=== PATIENT | female | born 1940 | race Caucasian/White ===

== ENCOUNTER 2017-04-18 17:27 | Inpatient (IN) | payer MEDICARE, OTHER ==
[~2017-04-18] VITALS: Ht 154.9 cm; Wt 68.0 kg
[~2017-04-18 17:27] MED LIST: ALBU8.5H3 INH; ASPI81TA16 PO; EZET10TA3 PO; FERGON PO; LOSA100T7 PO; MECL-77 PO; METF500T4 PO; METO100T13 PO; OMEG1CAP2 PO; SUMA100T4 PO; [UNRECOGNIZED DRUG - CODE] IM
[2017-04-18 18:07] LABS: BASOPHILS % 0.9 % (0.0-2.0); EOSINOPHILS # 0.1 10^3/ul (0.0-0.5); EOSINOPHILS % 1.7 % (0.0-7.0); HEMATOCRIT 34.7 % (37.0-47.0); HEMOGLOBIN 10.9 g/dl (12.0-16.0); LYMPHOCYTES # 1.2 10^3/ul (0.8-2.9); LYMPHOCYTES % 35.1 % (15.0-51.0); MEAN CORPUSCULAR HEMOGLOBIN 28.8 pg (29.0-33.0); MEAN CORPUSCULAR HGB CONC 31.4 g/dl (32.0-37.0); MEAN CORPUSCULAR VOLUME 91.6 fl (82.0-101.0); MEAN PLATELET VOLUME 9.5 fl (7.4-10.4); MONOCYTE # 0.4 10^3/ul (0.3-0.9); MONOCYTES % 10.6 % (0.0-11.0); NEUTROPHIL # 1.8 10^3/ul (1.6-7.5); NEUTROPHILS % 51.4 % (39.0-77.0); PLATELET COUNT 189 10^3/UL (140-415); RED BLOOD COUNT 3.79 10^6/ul (4.20-5.40); RED CELL DISTRIBUTION WIDTH 14.2 % (11.5-14.5); WHITE BLOOD COUNT 3.5 10^3/ul (4.8-10.8)
--- NOTE | 2017-04-18 18:20 | ERA ---
ER Documentation Chief Complaint Date/Time DATE: 04/18/17 TIME: 18:17 Chief Complaint chest pain radiates to the back " my heast skip beats" HPI This is a very pleasant 76-year-old female, Albanian speaking, with a history of hypertension taking metoprolol that presents to the emergency department complaining of chest palpitations and irregular rhythms of her heart for the past 24 hours. The patient indicates she had associated symptoms of dizziness lightheadedness but denied a headache nausea vomiting or diarrhea. She stated she had no chest pressure that radiated to the neck arm or jaw but did indicate when she would experience these palpitations with a sensation of irregular rhythm she would also experience pain that was radiating to the upper back. She denied any lower abdominal pain or lower back pain. She no frequency urgency or dysuria. She states she has never had any similar symptoms in the past. She has no shortness of breath at rest or exertion denies any recent travel or prolonged immobilization. ROS All systems reviewed and are negative except as per history of present illness. Medications Home Meds Active Scripts Albuterol Sulfate* (Proair HFA*) 8.5 Gm Hfa.aer.ad, 2 PUFF INH Q4H Y for WHEEZING AND SOB, #1 INHALER Prov:SHELLIE VARELA MD 06/07/16 Reported Medications Cyanocobalamin* (Vitamin B12*) 1,000 Mcg/Ml Soln, 1000 MCG IM DAILY, VIAL 11/27/15 Metformin Hcl* (Metformin Hcl*) 500 Mg Tablet, 500 MG PO WITH BREAKFAST, #30 TAB 11/27/15 Sumatriptan Succinate* (Sumatriptan Succinate*) 100 Mg Tablet, 100 MG PO BID Y for HEADACHE, TAB May repeat after 2 hours if needed; MAX 200 mg/24 hours 11/27/15 Losartan Potassium* (Losartan Potassium*) 100 Mg Tablet, 100 MG PO DAILY, TAB 11/27/15 Aspirin (LOW DOSE ASPIRIN EC) 81 Mg Tablet.dr, 81 MG PO DAILY, #30 TAB 11/27/15 Ezetimibe* (Zetia*) 10 Mg Tablet, 10 MG PO HS, TAB 11/27/15 Ferrous Gluconate* (Fergon*) 325 Mg Tab, 325 MG PO DAILY, TAB 11/27/15 [place]-3 Acid Ethyl Esters (Lovaza) 1 Gm Capsule, 2 GM PO BID, CAP 11/27/15 Meclizine Hcl* (Meclizine Hcl*) 25 Mg Tablet, 25 MG PO Q8H Y for NAUSEA AND/OR VOMITING, TAB 11/27/15 Metoprolol Succinate* (Toprol XL*) 100 Mg Tab.sr.24h, 100 MG PO DAILY, #30 TAB 11/27/15 Allergies Allergies: Coded Allergies: No Known Allergy (Unverified , 06/07/16) PMhx/Soc History of Surgery: Yes (COLON RESECTION) Anesthesia Reaction: No ( ) Hx Neurological Disorder: No Hx Respiratory Disorders: No Hx Cardiac Disorders: Yes (HTN) Hx Psychiatric Problems: No Hx Miscellaneous Medical Probl: No Hx Alcohol Use: No Hx Substance Use: No Hx Tobacco Use: No Smoking Status: Never smoker Physical Exam Vitals Vital Signs Date Time Temp Pulse Resp B/P Pulse Ox O2 Delivery O2 Flow Rate FiO2 04/18/17 17:30 99.2 75 19 194/91 97 Physical Exam Constitutional:Well-developed. Well-nourished. HEENT:Normocephalic. Atraumatic.Pupils were equal round reactive to light. Moist mucous membranes.No tonsillar exudates. Neck: No nuchal rigidity. No lymphadenopathy. No posterior cervical spine tenderness or step-offs. Respiratory: Not using accessory muscles of respiration.Lungs were clear to auscultation bilaterally. No rhonchi. No rales. No wheezing. Cardiovascular: Regular rate regular rhythm.No murmurs. No rubs were appreciated.S1, S2 normal. Distal pulses are palpable 2+ bilaterally. No reproducible chest wall tenderness crepitus or ecchymosis GI: Abdomen was soft. Nontender. Non Distended. No pulsatile abdominal masses or bruits. No rebound. No guarding. Bowel sounds were present and normal. Muscle skeletal: Full range of motion of both the upper and lower extremities bilaterally.Normal muscle tone.No assymetrical calf tenderness or swelling. Skin: No petechia, no purpura. No lesions on the palms or the soles of the feet. No maculopapular rash. NEURO: Patient was alert, awake, orientated x3.No facial droop. Gait observed and normal with no ataxia.Speech had regular rate and rhythm. No focal neurological deficits. Result Diagram: 04/18/17 0292 Results 24 hrs Laboratory Tests Test 04/18/17 17:55 White Blood Count 3.510^3/ul Red Blood Count 3.7910^6/ul Hemoglobin 10.9g/dl Hematocrit 34.7% Mean Corpuscular Volume 91.6fl Mean Corpuscular Hemoglobin 28.8pg Mean Corpuscular Hemoglobin Concent 31.4g/dl Red Cell Distribution Width 14.2% Platelet Count 88621^3/UL Mean Platelet Volume 9.5fl Neutrophils % 51.4% Lymphocytes % 35.1% Monocytes % 10.6% Eosinophils % 1.7% Basophils % 0.9% Nucleated Red Blood Cells % 0.0/100WBC Neutrophils # 1.810^3/ul Lymphocytes # 1.210^3/ul Monocytes # 0.410^3/ul Eosinophils # 0.110^3/ul Basophils # 0.010^3/ul Nucleated Red Blood Cells # 0.010^3/ul Procedures/MDM The patient presented to the emergency department with chest pain. My clinical evaluation and workup was to distinguish minor causes of chest pain from acute life threatening conditions such as myocardial infarction, pulmonary embolism, aortic dissection, esophageal rupture, cardiac tamponade. The patient was placed on a assistant corporate secretary and continuous pulse oximetry. IV access established by nursing staff. The patient received aspirin and nitroglycerin. 12 Lead EKG tracing ordered and reviewed by myself showed: Normal sinus rhythm of 70 bpm and no arrhythmia. DE interval normal. QRS duration normal. No ST segment elevation No ST segment depression. No changes consistent with acute ischemia. The patient did not have any chest pressure but was complaining of irregular rhythms with sharp pains that were radiating from the chest to the back. Therefore I obtained a CT scan of the chest and there is no evidence of aortic dissection. Given the patient's age and multiple comorbidities and cardiac risk factors I did feel she required admission for serial 12-lead EKG tracings and cardiac set of enzymes. She will be admitted to the hospitalist in serious condition for observation to the telemetry service. Departure Diagnosis: Primary Impression: Chest pain Qualified Code: R07.9 - Chest pain, unspecified type Condition: Serious KAPIL RIGGS Apr 18, 2017 18:20
[2017-04-18 18:22] LABS: INR 0.91; PROTIME 12.2 Sec (12.2-14.2)
[2017-04-18 18:23] LABS: PARTIAL THROMBOPLASTIN TIME 26.7 Sec (25.0-35.0)
[2017-04-18 18:25] LABS: ALANINE AMINOTRANSFERASE 45 IU/L (13-69); ALBUMIN 4.6 g/dl (3.3-4.9); ALBUMIN/GLOBULIN RATIO 1.35; ALKALINE PHOSPHATASE 80 IU/L (42-121); ANION GAP 18 (8-16); ASPARTATE AMINO TRANSFERASE 33 IU/L (15-46); BILIRUBIN,INDIRECT 0.1 mg/dl (0-1.1); BILIRUBIN,TOTAL 0.1 mg/dl (0.2-1.3); BLOOD UREA NITROGEN 18 mg/dl (7-20); CALCIUM 9.4 mg/dl (8.4-10.2); CARBON DIOXIDE 28 mmol/L (21-31); CHLORIDE 100 mmol/L (97-110); CREATINE KINASE 66 IU/L (23-200); GLUCOSE 101 mg/dl (70-220); POTASSIUM 3.9 mmol/L (3.5-5.1); SODIUM 142 mmol/L (135-144)
[2017-04-18 18:36] LABS: B-TYPE NATRIURETIC PEPTIDE 470 PG/ML (0-125)
[2017-04-18 18:45] LABS: TROPONIN-I < 0.012 ng/ml (0.00-0.12)
[2017-04-18] MEDS ORDERED: SOD CHLORIDE 0.9% 100 ML ONE (18:49)
[2017-04-18] MEDS ORDERED: IOHEXOL 100 ML ONE (18:49)
[2017-04-18] MEDS ORDERED: ONDANSETRON 4 MG INJ IV PRN ×2 (19:00→22:30)
[2017-04-18] MEDS ORDERED: ACETAMINOPHEN 325 MG TAB PO PRN (19:00)
--- NOTE | 2017-04-18 19:24 | QN ---
Documentation Comment Patient was initially admitted to the panel team but the patient has [facility] insurance. Therefore I canceled the admission of the panel team and spoke with Dr. Shell from [facility] for admission to a telemetry bed. EDNA BOWERS MD Apr 18, 2017 19:24
--- NOTE | 2017-04-18 19:26 | RADRPT ---
PROCEDURE: XR Chest. CLINICAL INDICATION: Chest pain. TECHNIQUE: Anterior chest x-ray. COMPARISON: 06/07/2016 FINDINGS: The lungs are clear. No pleural effusion identified. There is no evidence of pneumothorax. The heart size is large. There is atherosclerotic calcification of the aorta. The cardiomediastina l silhouette is otherwise unremarkable. The soft tissues are normal. Osseous structures are unremarkable. IMPRESSION: 1. New cardiomegaly. 2. Atherosclerotic calcification of the aorta. 3. No evidence of pneumonia or pneumothorax. RPTAT: II .Anson Astorga MD, Date Time Electronically viewed and signed by .Anson Astorga MD, on 04/18/2017 19:26 .M/
--- NOTE | 2017-04-18 20:24 | RADRPT ---
PROCEDURE: CT Chest with IV contrast. CLINICAL INDICATION: Chest pain. TECHNIQUE: CT scan of the chest was performed on a multidetector scanner. The patient was scanned following the uncomplicated intravenous administration of 100 cc of Omnipaque 350 contrast. 3D, co jese and sagittal reformatted images were obtained from the axial source images. Images were review ed on a high-resolution PACS workstation. The total exam CTDlvol = 51 mGy and DLP = 346 mGy-cm. One of the following 3 dose reduction techniques were used: Automated exposure control; adjustment of th e mA and/or kV according to patient size; or use of iterative reconstruction technique. COMPARISON: None available FINDINGS: No filling defects are identified within the pulmonary arteries to suggest pulmonary artery thrombos is. Thoracic aorta is normal caliber without aneurysm or dissection. There is no mediastinal or hi lar lymphadenopathy or mass. Heart is normal size. No pericardial fluid or thickening. There is mild dependent atelectasis. There is a linear atelectasis versus scarring in the right midd le lobe.. There is no pleural effusion. There is no pneumothorax. There are no fractures. There are mild degenerate changes of the thoracic spine. Imaging obtained through the upper abdomen demonstrates multiple calcified gallstones within the gal lbladder. The partially visualized gallbladder is otherwise unremarkable. There is no identifiable biliary ductal dilatation. There is 3.2 cm cyst in the upper pole of the left kidney. There is a 1.9 cm cyst in the upper pole of the right kidney. There is no evidence for pancreatitis.. IMPRESSION: 1. No aortic aneurysm or dissection. 2. No evidence for pulmonary embolus. 3. Right middle lobe atelectasis versus scarring. 4. Mild dependent atelectasis. 5. Cholelithiasis. 6. Bilateral renal cyst. 7. Mild degenerative changes of the thoracic spine. RPTAT: HMVK .Paolo Doshi MD, Date Time Electronically viewed and signed by .Paolo Doshi MD, on 04/18/2017 20:23 .K/
[2017-04-18 20:44] VITALS: PULSE 60
[2017-04-18 20:45] VITALS: Ht 154.9 cm; Wt 68.0 kg
[2017-04-18 20:57] VITALS: BP 168/73; RESP 20
[2017-04-18 21:30] VITALS: BP 176/89; PULSE 54; RESP 18
[2017-04-18] MEDS: ACETAMINOPHEN 325 MG TAB PO PRN (22:25)
[2017-04-18] MEDS ORDERED: morphine 2 MG INJ IV PRN (22:30)
[2017-04-18] MEDS ORDERED: GLUCOSE GEL 15 GRAM TUBE BUCCAL PRN (22:30)
[2017-04-18] MEDS ORDERED: MAGNESIUM HYDROXIDE 30ML CUP PO PRN (22:30)
[2017-04-18] MEDS ORDERED: GLUCOSE GEL 15 GRAM TUBE PO PRN ×2 (22:30)
[2017-04-18] MEDS ORDERED: NACL 0.9% 3 ML SYG IV SCH (22:30)
[2017-04-18] MEDS ORDERED: SUMATRIPTAN 50 MG TAB PO PRN (22:30)
[2017-04-18] MEDS ORDERED: DEXTROSE 50% 50 ML SYRINGE IV PRN ×2 (22:30)
[2017-04-18] MEDS ORDERED: hydrALAzine 20 MG INJ IV PRN (22:30)
[2017-04-18] MEDS ORDERED: ZOLPIDEM 5 MG TAB PO PRN (22:30)
[2017-04-18] MEDS ORDERED: GLUCAGON 1 MG INJ IM PRN (22:30)
[2017-04-18] MEDS ORDERED: BISACODYL (EC) 5 MG TAB PO PRN (22:30)
[2017-04-18] MEDS ORDERED: ALBUTEROL HFA 8 GM INHALER INH PRN (22:30)
[2017-04-18] MEDS ORDERED: MECLIZINE 25 MG TAB PO PRN (22:30)
[2017-04-18] MEDS ORDERED: DOCUSATE SODIUM 100 MG CAP PO PRN (22:30)
[2017-04-18] MEDS: SOD CHLORIDE 0.9% 1,000 ML IV SCH (23:01)
[2017-04-18 23:53] LABS: CREATINE KINASE 62 IU/L (23-200)
[2017-04-19] VITALS (12 sets, daily range): BP systolic 121–161; BP diastolic 63–77; PULSE 54–72; RESP 20
[2017-04-19 00:04] LABS: CK-MB 1.12 ng/ml (0.0-2.4)
[2017-04-19 00:06] LABS: TROPONIN-I < 0.012 ng/ml (0.00-0.12)
[2017-04-19] MEDS ORDERED: ACCU-CHEK XX SCH (02:00)
[2017-04-19] MEDS: PANTOPRAZOLE 40 MG INJ IV SCH (05:45)
[2017-04-19 06:30] LABS: CREATINE KINASE 53 IU/L (23-200)
[2017-04-19 06:42] LABS: CK-MB 0.81 ng/ml (0.0-2.4)
[2017-04-19 06:47] LABS: TROPONIN-I < 0.012 ng/ml (0.00-0.12)
[2017-04-19 07:14] LABS: CHOL/HDL RATIO 2.5 RATIO
[2017-04-19] MEDS ORDERED: metFORMIN 500 MG TAB PO SCH (07:55)
[2017-04-19] MEDS: ENOXAPARIN 40 MG/0.4 ML SYG SC SCH (09:28)
[2017-04-19] MEDS: FERROUS GLUCONATE (EC) 325 MG TAB PO SCH (09:28)
[2017-04-19] MEDS: ACETAMINOPHEN 325 MG TAB PO PRN (09:29)
[2017-04-19] MEDS: LOSARTAN 50 MG TAB PO SCH (09:29)
[2017-04-19] MEDS: ASPIRIN (EC) 81 MG TAB PO SCH (09:29)
[2017-04-19] MEDS: METOPROLOL (XL) 100 MG TAB PO SCH (09:30)
[2017-04-19] MEDS: CYANOCOBALAMIN 1000 MCG INJ IM SCH (09:37)
--- NOTE | 2017-04-19 11:58 | HP ---
Date/Time of Note Date/Time of Note DATE: 04/19/17 TIME: 11:52 Assessment/Plan VTE Prophylaxis VTE Prophylaxis Intervention: ambulation Lines/Catheters IV Catheter Type (from [facility]): Peripheral IV Urinary Cath still in place: No Assessment/Plan Chief Complaint/Hosp Course 1. Paroxysmal arrhythmia. 2. Anemia 3. Controlled hypertension 4. metabolic syndrome 5. Overweight 6. Hx colon cancer 7. dyslipidemia 8.Hx Migraines Problems: Assessment/Plan 1. Thyroid panel 2. Telemetry service 3. dr Huffman/hieu for consult 4. fall precautions 5. DVT and GI prophylaxis HPI/ROS Admit Date/Time Admit Date/Time Apr 18, 2017 at 19:23 Hx of Present Illness 76-year-old female, Emirati speaking, with a history of hypertension presents to the emergency department complaining irregular rhythms of her heart for the past 24 hours. The patient indicates she had associated symptoms of dizziness and lightheadedness. Denied chest pain. She states she has never had any similar symptoms in the past. She has no shortness of breath at rest or exertion denies any recent travel or prolonged immobilization. ROS Constitutional: improved, no complaints Eyes: no complaints ENT: no complaints Respiratory: no complaints Cardiovascular: No lightheadedness, No no complaints, No orthopenea, No other ( anemia), No palpitations, No paroxysmal nocturnal dyspnea Gastrointestinal: no complaints, pain Genitourinary: dysuria, no complaints, No bleeding, No discharge, No flank pain, No hematuria, No other Musculoskeletal: no complaints Lymphatic: no complaints PMH/Family/Social Past Medical History Medical History: hypertension Past Surgical History Past Surgical Hx: bowel resection (after colon cancer 2000), other Family History Significant Family History: other (, 4 children) Social History Alcohol Use: none Smoking Status: Never smoker Drug Use: none Exam/Review of Systems Vital Signs Vitals Vital Signs Date Time Temp Pulse Resp B/P Pulse Ox O2 Delivery O2 Flow Rate FiO2 04/19/17 11:45 98.3 64 20 161/74 97 04/18/17 21:30 Room Air Intake and Output 04/18/17 04/18/17 04/19/17 15:00 23:00 07:00 Intake Total 670 ml Balance 670 ml Exam Constitutional: alert, oriented Eyes: nl conjunctiva ENMT: nl external ears & nose Neck: supple Respiratory: clear to auscultation Cardiovascular: regular rate and rhythm Gastrointestinal: soft Genitourinary - Female: nl external genitalia Extremities: normal pulses Labs Result Diagram: 04/18/17175404/18/171754 Medications Medications Current Medications Aspirin (Halfprin) 81 mg DAILY PO Last administered on 04/19/17 09:29; Admin Dose 81 MG; Start 04/19/17 at 09:00 Cyanocobalamin (Vitamin B12 Inj) 1,000 mcg DAILY IM Last administered on 09:37; Admin Dose 1,000 MCG; Start 04/19/17 at 09:00 EZETIMIBE (Zetia) 10 mg HS PO ; Start 04/19/17 at 21:00 Ferrous Gluconate (Fergon) 325 mg DAILY PO Last administered on 04/19/17 09:28 ; Admin Dose 325 MG; Start 04/19/17 at 09:00 Losartan Potassium (Cozaar) 100 mg DAILY PO Last administered on 04/19/17 09: 29; Admin Dose 100 MG; Start 04/19/17 at 09:00 Meclizine HCl (Antivert) 25 mg Q8H PRN PO NAUSEA AND/OR VOMITING; Start at 22:30 Metoprolol Succinate (Toprol Xl) 100 mg DAILY PO Last administered on 09:30; Admin Dose 100 MG; Start 04/19/17 at 09:00 Sumatriptan Succinate 100 mg 100 mg BID PRN PO HEADACHE; Start 04/18/17 at 22: 30 Sodium Chloride (NS) 1,000 ml @ 40 mls/hr Q24H IV Last administered on 23:01; Admin Dose 40 MLS/HR; Start 04/18/17 at 22:03 Ondansetron HCl (Zofran Inj) 4 mg Q6H PRN IV NAUSEA AND/OR VOMITING; Start at 22:30 Acetaminophen (Tylenol Tab) 650 mg Q6H PRN PO PAIN LEVEL 1-3 OR FEVER Last administered on 04/19/17 09:29; Admin Dose 650 MG; Start 04/18/17 at 22:30 Morphine Sulfate (morphine) 2 mg Q4H PRN IV SEVERE PAIN LEVEL 7-10; Start 04/18 at 22:30 Docusate Sodium (Colace) 100 mg Q12H PRN PO CONSTIPATION; Start 04/18/17 at 22: 30 Magnesium Hydroxide (Milk Of Mag) 30 ml DAILY PRN PO CONSTIPATION; Start at 22:30 Bisacodyl (Dulcolax) 5 mg DAILY PRN PO CONSTIPATION; Start 04/18/17 at 22:30 Zolpidem Tartrate (Ambien) 5 mg QHS PRN PO SLEEP; Start 04/18/17 at 22:30 Pantoprazole (Protonix Iv) 40 mg DAILY@06 IV Last administered on 04/19/17 05: 45; Admin Dose 40 MG; Start 04/19/17 at 06:00 Enoxaparin Sodium (Lovenox) 40 mg DAILY SC Last administered on 04/19/17 09:28 ; Admin Dose 40 MG; Start 04/19/17 at 09:00 Miscellaneous Information 1 ea NOTE XX ; Start 04/18/17 at 22:30 Hydralazine HCl (Apresoline) 10 mg Q6H PRN IV ELEVATED BLOOD PRESSURE Last administered on 04/18/17 22:40; Admin Dose 10 MG; Start 04/18/17 at 22:30 HUGO IYER Apr 19, 2017 11:58
--- NOTE | 2017-04-19 18:25 | RADRPT ---
Echocardiogram Report Patient Name: DEANDRE JOYCE Gender: Female Date: 1940 Study Date: 19-Apr-2017 [employer] Driver: Elisa [facility] Location: [address] Ref. Physician: EBONI DICKERSON Quality: Adequate Procedures: Transthoracic echocardiogram with complete 2D, M-Mode, and doppler examination. Indications: Coronary Artery Disease. 2D/M Mode Doppler Measurement Value Normal Ranges Measurement Value Normal Ranges LVIDd 2D 3.8 3.5 - 5.6 cm AV Peak Dave 1.3 m/sec LVIDs 2D 2.8 2.1 - 4.1 cm AV Peak PG 6.0 mmHg FS 2D 26.2 % LVOT Peak Dave 1.2 m/sec LVPWd 2D 1.3 0.6 - 1.1 cm LVOT Peak PG 6.0 mmHg IVSd 2D 1.3 0.6 - 1.1 cm MV E Peak Dave 1.0 m/sec IVS/LVPW 2D 1.0 MV A Peak Dave 0.6 m/sec AoR Diam 2D 2.9 2.0 - 3.7 cm MV E/A 1.7 LA/Ao 2D 1 0 - 1 MV Decel Time 239 msec EDV 2D 55.3 cm3 MV E/A 1.7 ESV 2D 22.2 cm3 TR Peak Dave 2.3 m/sec LA Dimen 2D 4.0 2.3 - 4.0 cm TR Peak PG 20.0 mmHg RVSP 23.0 mmHg Findings Left Ventricle: Normal left ventricular systolic function. Normal left ventricular cavity size. Mild concentric left ventricular hypertrophy. Ejection fraction is visually estimated at 60 %. Tissue Doppler/Mitral Doppler indices are within normal limits. Right Ventricle: Normal right ventricular size. Normal right ventricular systolic function. Left Atrium: The left atrium is normal in size. Right Atrium: The right atrium is normal in size. Mitral Valve: Mild mitral leaflet calcification. Mild mitral annular calcification. Trace mitral regurgitation. Aortic Valve: Normal appearance of the aortic valve. No significant aortic stenosis or insufficiency. Tricuspid Valve: Normal appearance of the tricuspid valve. Estimated peak PA systolic pressure 23 mmHg. There is trace tricuspid regurgitation. Pulmonic Valve: Pulmonic valve not well visualized. There is trace pulmonic regurgitation. Pericardium: Normal pericardium with no significant pericardial effusion. Aorta: Normal aortic root. IVC: Normal size and normal respiratory collapse consistent with normal right atrial pressure. Conclusions 1.Normal left ventricular systolic function. Normal left ventricular cavity size. Mild concentric left ventricular hypertrophy. Ejection fraction is visually estimated at 60 %. Tissue Doppler/Mitral Doppler indices are within normal limits. 2.Mild mitral leaflet calcification. Mild mitral annular calcification. Trace mitral regurgitation. 3.Normal appearance of the aortic valve. No significant aortic stenosis or insufficiency. 4.Normal appearance of the tricuspid valve. Estimated peak PA systolic pressure 23 mmHg. There is trace tricuspid regurgitation. Electronically Signed By: Aleks Mahoney 19-Apr-2017 18:24:44 -0700 Patient Name: DEANDRE JOYCE Study Date: 19-Apr-2017 [id number]
[2017-04-19] MEDS ORDERED: EZETIMIBE 10 MG TAB PO SCH (21:00)
[2017-04-19] MEDS: SOD CHLORIDE 0.9% 1,000 ML IV SCH (21:31)
[2017-04-20] VITALS (11 sets, daily range): BP systolic 121–168; BP diastolic 60–91; PULSE 40–76; RESP 18–20
[2017-04-20] MEDS: PANTOPRAZOLE 40 MG INJ IV SCH (05:51)
[2017-04-20] MEDS: SOD CHLORIDE 0.9% 1,000 ML IV SCH (05:51)
[2017-04-20 06:29] LABS: BASOPHILS % 1.3 % (0.0-2.0); EOSINOPHILS # 0.1 10^3/ul (0.0-0.5); HEMATOCRIT 32.2 % (37.0-47.0); HEMOGLOBIN 10.6 g/dl (12.0-16.0); LYMPHOCYTES # 1.1 10^3/ul (0.8-2.9); LYMPHOCYTES % 37.9 % (15.0-51.0); MEAN CORPUSCULAR HEMOGLOBIN 31.2 pg (29.0-33.0); MEAN CORPUSCULAR HGB CONC 32.9 g/dl (32.0-37.0); MEAN CORPUSCULAR VOLUME 94.7 fl (82.0-101.0); MEAN PLATELET VOLUME 9.9 fl (7.4-10.4); MONOCYTE # 0.4 10^3/ul (0.3-0.9); MONOCYTES % 12.3 % (0.0-11.0); NEUTROPHIL # 1.3 10^3/ul (1.6-7.5); NEUTROPHILS % 44.2 % (39.0-77.0); PLATELET COUNT 194 10^3/UL (140-415); RED CELL DISTRIBUTION WIDTH 14.2 % (11.5-14.5)
[2017-04-20 06:48] LABS: CREATININE 0.92 mg/dl (0.44-1.00); POTASSIUM 4.3 mmol/L (3.5-5.1)
[2017-04-20 07:35] LABS: CALCIUM 9.1 mg/dl (8.4-10.2)
[2017-04-20] MEDS: ASPIRIN (EC) 81 MG TAB PO SCH (08:29)
[2017-04-20] MEDS: FERROUS GLUCONATE (EC) 325 MG TAB PO SCH (08:29)
[2017-04-20] MEDS: LOSARTAN 50 MG TAB PO SCH (08:34)
[2017-04-20] MEDS: ENOXAPARIN 40 MG/0.4 ML SYG SC SCH (08:36)
[2017-04-20] MEDS: METOPROLOL (XL) 100 MG TAB PO SCH (08:37)
[2017-04-20] MEDS: CYANOCOBALAMIN 1000 MCG INJ IM SCH (08:38)
--- NOTE | 2017-04-20 11:57 | CONS ---
Date/Time of Note Date/Time of Note DATE: 04/20/17 TIME: 11:48 Assessment/Plan Assessment/Plan Chief Complaint/Hosp Course IMP: 1. Palpitations-resolved/only sinus arrythmia by tele monitor 2.HTN 3.HL 4.h/o cad-no CP. negative trops x 3/NL EF by echo Recc: -Tele -Continue losartan/toprol -Continue asa/zetia -d/c plannig Problems: Consultation Date/Type/Reason Admit Date/Time Apr 18, 2017 at 19:23 Initial Consult Date 04/18/2017 Type of Consultation: cardiology Reason for Consultation arrythmia Referring Provider: EBONI DICKERSON Exam/Review of Systems Vital Signs Vitals Vital Signs Date Time Temp Pulse Resp B/P Pulse Ox O2 Delivery O2 Flow Rate FiO2 04/20/17 11:26 98.0 55 18 127/64 97 04/18/17 21:30 Room Air Intake and Output 04/19/17 04/19/17 04/20/17 15:00 23:00 07:00 Intake Total 1230 ml 1550 ml Output Total 900 ml Balance 330 ml 1550 ml Exam Review of Systems: CONSTITUTIONAL: No fevers, chills. PULMONARY: No sob CARDIOVASCULAR: No chest pain/palpitations GASTROINTESTINAL: No nausea/vomiting. GENITOURINARY: No hematuria/dysuria. MUSCULOSKELETAL: No myagias/arthalgias. PSYCHIATRIC: The patient denies depression. NEUROLOGIC: No weakness Constitutional: alert, oriented Psych: no complaints Head: normocephalic ENMT: mucosa pink and moist Neck: jvd (9 cm water), supple Respiratory: clear to auscultation Cardiovascular: regular rate and rhythm Gastrointestinal: non-tender, soft Musculoskeletal: muscle tone (normal) Extremities: edema (none) Neurological: other (N O nfocal deficits) Results Result Diagram: 04/20/17 0535 04/20/17 0535 Results 24 hrs Laboratory Tests Test 04/20/17 05:35 White Blood Count 3.0 L Red Blood Count 3.40 L Hemoglobin 10.6 L Hematocrit 32.2 L Mean Corpuscular Volume 94.7 Mean Corpuscular Hemoglobin 31.2 Mean Corpuscular Hemoglobin Concent 32.9 Red Cell Distribution Width 14.2 Platelet Count 194 Mean Platelet Volume 9.9 Neutrophils % 44.2 Lymphocytes % 37.9 Monocytes % 12.3 H Eosinophils % 4.0 Basophils % 1.3 Nucleated Red Blood Cells % 0.0 Neutrophils # 1.3 L Lymphocytes # 1.1 Monocytes # 0.4 Eosinophils # 0.1 Basophils # 0.0 Nucleated Red Blood Cells # 0.0 Sodium Level 144 Potassium Level 4.3 Chloride Level 102 Carbon Dioxide Level 31 Anion Gap 15 Blood Urea Nitrogen 12 Creatinine 0.92 Glucose Level 83 Hemoglobin A1c 5.2 Calcium Level 9.1 Free Thyroxine Index 2.89 Thyroxine (T4) 8.5 Triiodothyronine (T3) Uptake 34.0 Medications Medications Current Medications Aspirin (Halfprin) 81 mg DAILY PO Last administered on 04/20/17 08:29; Admin Dose 81 MG; Start 04/19/17 at 09:00 Cyanocobalamin (Vitamin B12 Inj) 1,000 mcg DAILY IM Last administered on 08:38; Admin Dose 1,000 MCG; Start 04/19/17 at 09:00 EZETIMIBE (Zetia) 10 mg HS PO Last administered on 04/19/17 20:28; Admin Dose 10 MG; Start 04/19/17 at 21:00 Ferrous Gluconate (Fergon) 325 mg DAILY PO Last administered on 04/20/17 08:29 ; Admin Dose 325 MG; Start 04/19/17 at 09:00 Losartan Potassium (Cozaar) 100 mg DAILY PO Last administered on 04/20/17 08: 34; Admin Dose 100 MG; Start 04/19/17 at 09:00 Meclizine HCl (Antivert) 25 mg Q8H PRN PO NAUSEA AND/OR VOMITING; Start at 22:30 Metoprolol Succinate (Toprol Xl) 100 mg DAILY PO Last administered on 09:30; Admin Dose 100 MG; Start 04/19/17 at 09:00 Sumatriptan Succinate 100 mg 100 mg BID PRN PO HEADACHE; Start 04/18/17 at 22: 30 Sodium Chloride (NS) 1,000 ml @ 40 mls/hr Q24H IV Last administered on 05:51; Admin Dose 40 MLS/HR; Start 04/18/17 at 22:03 Ondansetron HCl (Zofran Inj) 4 mg Q6H PRN IV NAUSEA AND/OR VOMITING; Start at 22:30 Acetaminophen (Tylenol Tab) 650 mg Q6H PRN PO PAIN LEVEL 1-3 OR FEVER Last administered on 04/19/17 09:29; Admin Dose 650 MG; Start 04/18/17 at 22:30 Morphine Sulfate (morphine) 2 mg Q4H PRN IV SEVERE PAIN LEVEL 7-10; Start 04/18 at 22:30 Docusate Sodium (Colace) 100 mg Q12H PRN PO CONSTIPATION; Start 04/18/17 at 22: 30 Magnesium Hydroxide (Milk Of Mag) 30 ml DAILY PRN PO CONSTIPATION; Start at 22:30 Bisacodyl (Dulcolax) 5 mg DAILY PRN PO CONSTIPATION; Start 04/18/17 at 22:30 Zolpidem Tartrate (Ambien) 5 mg QHS PRN PO SLEEP; Start 04/18/17 at 22:30 Pantoprazole (Protonix Iv) 40 mg DAILY@06 IV Last administered on 04/20/17 05: 51; Admin Dose 40 MG; Start 04/19/17 at 06:00 Enoxaparin Sodium (Lovenox) 40 mg DAILY SC Last administered on 04/20/17 08:36 ; Admin Dose 40 MG; Start 04/19/17 at 09:00 Miscellaneous Information 1 ea NOTE XX ; Start 04/18/17 at 22:30 Hydralazine HCl (Apresoline) 25 mg Q8H PRN PO SBP above 160; Start 04/19/17 at 13:00 AMANDO BROWN Apr 20, 2017 11:57
--- NOTE | 2017-04-20 12:51 | CONS ---
DATE OF ADMISSION: 04/18/2017 DATE OF CONSULTATION: 04/19/2017 REFERRING PHYSICIAN: Schuyler Shell MD REASON FOR CONSULTATION: Palpitations. HISTORY OF PRESENT ILLNESS: The patient is a 76-year-old woman with hypertension, dyslipidemia, history of coronary artery disease, who comes to the hospital now for evaluation of palpitations. She says she had episodes of rapid, fast beat on and off for 2 days. However, here at the hospital, the patient did not have any arrhythmia. She has fairly normal EKG with nonspecific ST-T changes. The patient states that her primary rotary soil stabilizer is Dr. Hartley, who did a stress test for her about 4 months ago which was normal. The patient says that she feels better now, and she wants to go home. The patient appears to be fairly symptomatic at this particular point. I do not have any documented arrhythmia. Currently, the patient does not appear to be in fluid overload on my examination. I think for now conservative therapy is appropriate. I would not pursue any further risk stratification as the patient had a negative stress test with her primary doctor prior. For now, I think that diagnosis of arrhythmia has not been given yet. As such, I think we will continue to follow. If her arrhythmias do not intensify, outpatient Holter monitor would be warranted. PAST MEDICAL HISTORY: Hypertension, dyslipidemia, history of coronary artery disease, history of anemia, history of metabolic syndrome, history of colon cancer, history of migraines. MEDICATION: Zetia 10 mg a day, apresoline 25 mg p.o. 8 hours, iron replacement, Cozaar 100 mg p.o. b.i.d., metformin, Lovenox hours, meclizine, sumatriptan, aldosterone. ALLERGIES: NO KNOWN DRUG ALLERGIES. SOCIAL HISTORY: The patient does not smoke, does not drink, does not use drugs. FAMILY HISTORY: Negative for sudden cardiac or premature coronary artery disease. REVIEW OF SYSTEMS: GENERAL: No fevers, no chills, no weight change, . CARDIOVASCULAR: No chest pain reported now. RESPIRATORY: No shortness of breath. GASTROINTESTINAL: No nausea or vomiting. GENITOURINARY: No dysuria or hematuria. NEUROLOGIC: . PSYCHIATRIC: No history of psychiatric illness. PHYSICAL EXAMINATION: VITAL SIGNS: Temperature 98.4, heart rate 64, blood pressure . GENERAL APPEARANCE: Well-developed, well-nourished woman in no acute distress, alert and oriented x 3, speaks Bulgarian. HEENT: Head is normocephalic, atraumatic. Sclerae anicteric. NECK: Supple. JVD 6 to 7 cm. No lymphadenopathy. No thyromegaly. HEART: Regular. Soft 1/6 systolic murmur at the apex. PMI is minimally displaced. There is no space. ABDOMEN: Distended. Bowel sounds are present. No hepatosplenomegaly. . EXTREMITIES: No evidence of clubbing, cyanosis or edema. LABORATORY: White blood cell count 3.5, hemoglobin 10.9, platelets 189,000. INR 0.9. Creatinine 1. Troponin negative at 0.012. TSH is 2.5 from November of this year. ASSESSMENT AND PLAN: 1. Palpitations. The patient's palpitations suspect of arrhythmia, but no definitive diagnosis was given. The patient is on a beta gloria and aspirin. Conservative therapy is expected for now. The patient has an outpatient rotary soil stabilizer, Dr. Hartley, with whom she should follow up. 2. Chest pain. The patient denies chest pain to me now. Troponins are negative. According to her, she had a negative stress 3 months ago. For now, conservative therapy I expected. She will follow up with primary rotary soil stabilizer. 3. Hypertension. Blood pressure well controlled. Continue to optimize medical status. 4. Dizziness. The patient has episodes of dizziness. She is on meclizine, not dizzy now. 5. Abnormal EKG. Nonspecific ST-T changes noted. No preexcitation. Continue to follow. I would like to thank Dr. Shell for referring this patient for my evaluation. Dictated By: Aleks Mahoney MD /fnt/ec /Document#: [id number]
[2017-04-20] MEDS ORDERED: morphine 4 MG/ML VIAL IV PRN (15:00)
--- NOTE | 2017-04-20 16:13 | PDOCDIS ---
Discharge Instructions CONDITION Patient Condition: Stable HOME CARE INSTRUCTIONS: Special Diet: CARDIAC ACTIVITY: Activity Restrictions: Slowly Increase Activity FOLLOW UP/APPOINTMENTS Follow-up Plan f/u pcp [address] alba 1 wk EBONI DICKERSON MD Apr 20, 2017 16:13
[2017-04-20] MEDS ORDERED: HYDR-3671 PO (16:16)
[2017-04-20] MEDS ORDERED: BISA5TAB6 PO (16:16)
--- NOTE | 2017-04-20 17:26 | QN ---
Documentation Comment [id number] EBONI DICKERSON MD Apr 20, 2017 17:26
--- NOTE | 2017-04-20 22:10 | DS ---
Date/Time of Note Date/Time of Note DATE: 04/20/17 TIME: 22:08 Discharge Summary Admission/Discharge Info Admit Date/Time Apr 18, 2017 at 19:23 Discharge Date/Time Apr 20, 2017 at 17:30 Discharge Diagnosis arrhythmia Patient Condition: Good Consults Dr hagen Procedures 2D echocardiogram Hx of Present Illness 76-year-old female, Pakistani speaking, with a history of hypertension presents to the emergency department complaining irregular rhythms of her heart for the past 24 hours. The patient indicates she had associated symptoms of dizziness and lightheadedness. Denied chest pain. She states she has never had any similar symptoms in the past. She has no shortness of breath at rest or exertion denies any recent travel or prolonged immobilization. Hospital Course IMP: 1. Palpitations-resolved/only sinus arrythmia by tele monitor 2.HTN 3.HL 4.h/o cad-no CP. negative trops x 3/NL EF by echo Recc: -Tele -Continue losartan/toprol -Continue asa/zetia -d/c plannig Home Meds Active Scripts Bisacodyl* (Bisacodyl*) 5 Mg Tablet., 5 MG PO DAILY Y for CONSTIPATION for 14 Days Prov:EBONI DICKERSON MD 04/20/17 Hydralazine Hcl* (Hydralazine Hcl*) 25 Mg Tab, 25 MG PO Q8H Y for SBP above 160 for 28 Days, TAB Prov:EBONI DICKERSON MD 04/20/17 Albuterol Sulfate* (Proair HFA*) 8.5 Gm Hfa.aer.ad, 2 PUFF INH Q4H Y for WHEEZING AND SOB, #1 INHALER Prov:SHELLIE VARELA MD 06/07/16 Reported Medications Sumatriptan Succinate* (Sumatriptan Succinate*) 100 Mg Tablet, 100 MG PO BID Y for HEADACHE, TAB May repeat after 2 hours if needed; MAX 200 mg/24 hours 11/27/15 Losartan Potassium* (Losartan Potassium*) 100 Mg Tablet, 100 MG PO DAILY, TAB 11/27/15 Aspirin (LOW DOSE ASPIRIN EC) 81 Mg Tablet.dr, 81 MG PO DAILY, #30 TAB 11/27/15 Ezetimibe* (Zetia*) 10 Mg Tablet, 10 MG PO HS, TAB 11/27/15 Ferrous Gluconate* (Fergon*) 325 Mg Tab, 325 MG PO DAILY, TAB 11/27/15 [place]-3 Acid Ethyl Esters (Lovaza) 1 Gm Capsule, 2 GM PO BID, CAP 11/27/15 Meclizine Hcl* (Meclizine Hcl*) 25 Mg Tablet, 25 MG PO Q8H Y for NAUSEA AND/OR VOMITING, TAB 11/27/15 Metoprolol Succinate* (Toprol XL*) 100 Mg Tab.sr.24h, 100 MG PO DAILY, #30 TAB 11/27/15 Discontinued Reported Medications Cyanocobalamin* (Vitamin B12*) 1,000 Mcg/Ml Soln, 1000 MCG IM DAILY, VIAL 11/27/15 Primary Care Provider Edgardo Bush Pending Labs Laboratory Tests Test 04/20/17 05:35 White Blood Count 3.010^3/ul (4.8-10.8) Red Blood Count 3.4010^6/ul (4.20-5.40) Hemoglobin 10.6g/dl (12.0-16.0) Hematocrit 32.2% (37.0-47.0) Mean Corpuscular Volume 94.7fl (82.0-101.0) Mean Corpuscular Hemoglobin 31.2pg (29.0-33.0) Mean Corpuscular Hemoglobin Concent 32.9g/dl (32.0-37.0) Red Cell Distribution Width 14.2% (11.5-14.5) Platelet Count 70340^3/UL (140-415) Mean Platelet Volume 9.9fl (7.4-10.4) Neutrophils % 44.2% (39.0-77.0) Lymphocytes % 37.9% (15.0-51.0) Monocytes % 12.3% (0.0-11.0) Eosinophils % 4.0% (0.0-7.0) Basophils % 1.3% (0.0-2.0) Nucleated Red Blood Cells % 0.0/100WBC (0.0-0.0) Neutrophils # 1.310^3/ul (1.6-7.5) Lymphocytes # 1.110^3/ul (0.8-2.9) Monocytes # 0.410^3/ul (0.3-0.9) Eosinophils # 0.110^3/ul (0.0-0.5) Basophils # 0.010^3/ul (0.0-0.1) Nucleated Red Blood Cells # 0.010^3/ul (0.0-0.0) Sodium Level 144mmol/L (135-144) Potassium Level 4.3mmol/L (3.5-5.1) Chloride Level 102mmol/L (97-110) Carbon Dioxide Level 31mmol/L (21-31) Anion Gap 15 (8-16) Blood Urea Nitrogen 12mg/dl (7-20) Creatinine 0.92mg/dl (0.44-1.00) Glucose Level 83mg/dl (70-220) Hemoglobin A1c 5.2% (0-5.9) Calcium Level 9.1mg/dl (8.4-10.2) Free Thyroxine Index 2.89ug/ml (0.65-3.89) Thyroxine (T4) 8.5ug/dl (5.5-11.0) Triiodothyronine (T3) Uptake 34.0% (23.5-40.5) HUGO IYER Apr 20, 2017 22:10
--- NOTE | 2017-04-21 05:32 | DS ---
DATE OF ADMISSION: 04/18/2017 DATE OF DISCHARGE: 04/20/2017 HOSPITAL COURSE: Patient is a 76-year-old female who was admitted with chest pain, has history of , also has bradycardia on beta gloria and those were adjusted. Patient was seen by Dr. Mahoney and Dr. Huffman. CT chest angio with IV contrast, no aortic aneurysm or dissection. No evidence of pulmonary embolus. Right middle lobe atelectasis also has scarring, mild dependent atelectasis with poorly differentiated bilateral renal cysts, mild degenerative changes of the thoracic spine. The patient also has anemia, which is stable. Patient is cleared Dr. Mahoney to be discharged home. DISCHARGE DIAGNOSES: 1. Atypical chest pain, myocardial infarction ruled out. 2. Cardiomegaly. 3. Atherosclerotic heart disease. 4. Patient has anemia, neutropenia. 5. Patient has bradycardia, asymptomatic. PLAN: Patient to continue with , hydralazine, albuterol, aspirin, Zetia gluconate, ferrous gluconate, losartan, meclizine, metoprolol, [place]-3 fatty acids, sumatriptan. Continue following with PCP, Dr. Mahoney, as an outpatient. Diabetes and cardiac diet. Patient is stable at the time of discharge. Dictated By: Schuyler Shlel MD /anton/erica /Document#: [id number] [place]OR[place]
== END 2017-04-20 17:30 | disposition home or self-care (01) | DRG 313 ==
LOC: E/R 17:27 → TEL 19:23
PROVIDERS: ADMIT Internal Medicine Nephrology; ATTEND Internal Medicine Nephrology
DX: R07.89 Other chest pain (principal); I25.10 Atherosclerotic heart disease of native coronary artery without angina pectoris; D70.9 Neutropenia, unspecified; E88.81 Metabolic syndrome and other insulin resistance; R00.1 Bradycardia, unspecified; R00.2 Palpitations; R42 Dizziness and giddiness; R94.31 Abnormal electrocardiogram [ECG] [EKG]; D64.9 Anemia, unspecified; E66.3 Overweight; E78.5 Hyperlipidemia, unspecified; I51.7 Cardiomegaly; I10 Essential (primary) hypertension; Z68.28 Body mass index [BMI] 28.0-28.9, adult; Z79.82 Long term (current) use of aspirin; Z79.84 Long term (current) use of oral hypoglycemic drugs; Z85.038 Personal history of other malignant neoplasm of large intestine
CPT/HCPCS: 71010; 71275; 80048; 80053; 80061; 82550; 82553; 83036; 83880; 84436; 84479; 84484; 85025; 85610; 85730; 93005; 93306; C9113; J0360; J1650; J3420; J7030; Q9967

== ENCOUNTER → 2018-03-17 | Outpatient (CLI) | END | disposition home or self-care (01) ==